=== PATIENT | male | born 1950 | race Caucasian/White ===

== ENCOUNTER 2021-11-07 07:35 | Day surgery (SDC) | payer MEDICARE, BC ==
--- NOTE | 2021-11-07 07:28 | PCM.PREANE ---
Preanesthetic Assessment - Procedure Proposed Procedure: Laparoscopic Cholecystectomy - Anesthesia/Transfusion/Family Hx Anesthesia History: Prior Anesthesia Without Reaction Family History of Anesthesia Reaction: No Transfusion History: No Prior Transfusion(s) Intubation History: Unknown - Review of Systems Pulmonary: No Symptoms (Covid: 08/28/2021 + with primary symptom being fatigue. ETOH: occasionally) Cardiovascular: No Symptoms (HTN, Elevated lipids) Gastrointestinal: Diarrhea Neurological: No Symptoms Other: Reports: None (CKD III), Easy Bruising, Diabetes (am blood sugar: 143 @ 0758), Thyroid Problems (Hypothyroid) - Physical Assessment NPO Status Date: 11/06/21 NPO Status Time: 22:00 Vital Signs: HR: 98 Sat: 96% Temp: 97.8 Resp: 16 B/P: 163/75 Height: 1.68 m Weight: 97.522 kg ASA Class: 3 Mental Status: Alert & Oriented x3 Airway Class: Mallampati = 2 Dentition: Reports: Normal Dentition, Caries Thyro-Mental Finger Breadths: 3 Mouth Opening Finger Breadths: 3 ROM/Head Extension: Full Lungs: Clear to Auscultation, Normal Respiratory Effort Cardiovascular: Regular Rate, Regular Rhythm, No Murmurs - Lab Values: All labs reviewed and noted and within acceptable ranges to proceed with scheduled procedure. - Imaging/EKG Impressions: EKG: SR rate 76 - Allergies Allergies/Adverse Reactions: Allergies Allergy/AdvReac Type Severity Reaction Status Date / Time No Known Allergies Allergy Verified 11/06/21 18:12 - Anesthesia Plan Pre-Op Medication Ordered: None - Acknowledgements Anesthesia Type Planned: General Anesthesia Pt an Appropriate Candidate for the Planned Anesthesia: Yes Alternatives and Risks of Anesthesia Discussed w Pt/Guardian: Yes Pt/Guardian Understands and Agrees with Anesthesia Plan: Yes PreAnesthesia Questionnaire HEENT History: Reports: Impaired Vision Cardiovascular History: Reports: High Cholesterol, Hypertension, Other (See Below) Other Cardiovascular History: EDEMA Respiratory History: Reports: None Gastrointestinal History: Reports: None Genitourinary History: Reports: Chronic Renal Insuffiency, Renal Calculus, Other (See Below) 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 Musculoskeletal History: Reports: None Neurological History: Reports: None Psychiatric History: Reports: None Endocrine/Metabolic History: Reports: Diabetes, Type II, Hypothyroidism Hematologic History: Reports: None Immunologic History: Reports: None Oncologic (Cancer) History: Reports: None Dermatologic History: Reports: Other (See Below) Other Dermatologic History: LEG CYST - Infectious Disease History Infectious Disease History: Reports: Novel Coronavirus - Past Surgical History Head Surgeries/Procedures: Reports: None HEENT Surgical History: Reports: Cataract Surgery, Tonsillectomy Cardiovascular Surgical History: Reports: None Respiratory Surgical History: Reports: None GI Surgical History: Reports: None Female Surgical History: Reports: None Male Surgical History: Reports: None Endocrine Surgical History: Reports: None Neurological Surgical History: Reports: None Musculoskeletal Surgical History: Reports: None Oncologic Surgical History: Reports: None Dermatological Surgical History: Reports: None - SUBSTANCE USE Tobacco Use Status *Q: Never Tobacco User Recreational Drug Use History: No - HOME MEDS Home Medications: Home Meds Aspirin 81 mg PO DAILY 11/06/21 [History] Chlorthalidone 25 mg PO MOWEFR 11/06/21 [History] Insulin Glargine,Hum.Rec.Anlog [Toughulamo Solostar] 58 units SQ QAM 11/06/21 [History] Levothyroxine Sodium [Levothyroxine] 25 mcg PO DAILY 11/06/21 [History] Sodium Bicarbonate 650 mg PO BID 11/06/21 [History] amLODIPine [Norvasc] 5 mg PO DAILY 11/06/21 [History] atorvaSTATin [Lipitor] 10 mg PO BEDTIME 11/06/21 [History] lisinopriL [Lisinopril] 10 mg PO DAILY 11/06/21 [History] - CURRENT (IN HOUSE) MEDS Current Meds: Current Medications Lactated Ringer's (Ringers, Lactated) 1,000 mls @ 125 mls/hr IV ASDIRECTED ASHLEY Stop: 11/07/21 23:00 Lidocaine/Sodium Bicarbonate (Lidocaine 1%/Sod Bicarbonate In Ns 8.4% 1 Ml Syringe) 0.25 ml IDERM ONETIME PRN PRN Reason: Prior to IV Start Stop: 11/07/21 18:00 Sodium Chloride (Sodium Chloride 0.9% 10 Ml Syringe) 10 ml FLUSH ASDIRECTED PRN PRN Reason: Keep Vein Open Stop: 11/07/21 18:00
[~2021-11-07 07:35] MED LIST: Bupivacaine 0.5% 30 ML SDV ONE; Lactated Ringers 1,000 ML IV SCH; Lidocaine 1%/Sod Bicarbonate in NS 8.4% 1 ML Syringe IDERM PRN; Sodium Chloride 0.9% 10 ML Syringe FLUSH PRN
[2021-11-07] MEDS ORDERED: fentaNYL 100 MCG/2 ML SDV ONE ×2 (07:48→09:35)
[2021-11-07] MEDS ORDERED: Midazolam 1 MG/ML 2 ML SDV ONE (07:48)
[2021-11-07] MEDS ORDERED: Propofol 200 MG/20 ML SDV ONE ×2 (07:48)
[2021-11-07] MEDS ORDERED: Rocuronium 50 MG/5 ML Vial ONE (07:53)
[2021-11-07] MEDS ORDERED: ceFAZolin 1 GM Vial ONE (07:53)
[2021-11-07] MEDS ORDERED: Ondansetron 4 MG/2 ML SDV ONE (09:25)
[2021-11-07] MEDS ORDERED: Dexamethasone 4 MG/ML 5 ML MDV ONE (09:25)
[2021-11-07] MEDS ORDERED: Sodium Chloride 0.9% 1,000 ML ONE (09:30)
[2021-11-07] MEDS ORDERED: ePHEDrine 50 MG/ML SDV ONE (09:33)
[2021-11-07] MEDS ORDERED: Dexmedetomidine 200 MCG/2 ML SDV ONE (09:41)
[2021-11-07] MEDS ORDERED: Sodium Chloride 0.9% 100 ML ONE (09:41)
[2021-11-07] MEDS ORDERED: HYDROmorphone 0.5 MG/0.5 ML Syringe ONE ×2 (09:51→10:44)
[2021-11-07] MEDS ORDERED: Labetalol 100 MG/20 ML MDV ONE (11:27)
--- NOTE | 2021-11-07 11:29 | PCM.PRNOTE ---
- Free Text/Narrative Note: Date: 11/07/2021 Operation: laparoscopic cholecystectomy Indication: chronic cholecystitis Surgeon: Girish Meza MD Antibiotic: 2 g ancef IV pre-incision EBL: 50 cc Specimen: gallbladder DVT ppx: SCD Findings: Severe chronic cholecystitis with gallbladder sludge. Bile was spilled as the specimen was being taken off the liver. Critical view of safety obtained. Detailed Report: The patient was taken to the operating room and placed on the table in supine position. Timeout was performed and general endotracheal anesthesia was initiated. The abdomen was prepped and draped in usual sterile fashion. Veress needle was placed in the left upper quadrant in order to establish pneumoperitoneum. Once pressure reached 15 mmHg, air was aspirated with a needle and syringe just inferior to the umbilicus. A 5 mm bladed trocar was inserted at this site and a 5 mm 30 degree laparoscope was inserted into the ab domen. There is no evident injury from Veress needle placement and the needle was removed under vision with the laparoscope. Additional 5 mm ports were placed at the right upper quadrant, 1 laterally for the assistant terminal manager and 1 more medially for the surgeon's left hand. The patient was positioned in reverse Trendelenburg and rotated towards the surgeon standing on the patient's left side. There was abundant thick omentum obscuring view of the gallbladder. The fundus was visualized and grasped. The gallbladder was retracted cephalad. It was difficult to grab the gallbladder due to inflammation and thickening of the gallbladder wall. A 12 mm bladed trocar was inserted just to the right of the falciform at the subxiphoid region for the surgeon's right hand. Omental adhesions to the body of the gallbladder were peeled off bluntly. An additional 5 mm port was placed at the left upper quadrant for a retractor to hold the omentum out of view. With good visualization, careful dissection ensued. A combination of blunt dissection with the suction manager cosmetics, judicious electrocautery and the [place] grasper was used to clear tissue and expose the cystic duct and cystic artery. A critical view of safety was obtained. Purple hemolock clips were placed on the cystic duct with 2 on the stay side. Green hemoclips were placed on the cystic artery. The structures were transected with laparoscopic jonathon. Hook electrocautery was used to take the gallbladder off of the liver. Wall dissection commenced, thick bilious sludge leak from the gallbladder at the site of the duct clip from the gallbladder. The plane for dissection was difficult to discern due to chronic severe inflammation. Once from the liver, the specimen was placed in an Endo Catch bag and removed through the subxiphoid site. Bile was suctioned, and the dissection field was thoroughly irrigated and suctioned using a liter of sterile saline. There was some minor hemorrhage from the raw surface of the liver that was controlled with targeted electrocautery. A large piece of Surgicel was placed at the gallbladder fossa to aid with hemostasis. The dissection field appeared clean and dry. The 12 mm port was removed and fascia was closed at this site with a 0 Vicryl suture using a laparoscopic suture passer. All lateral 5 mm ports were removed under laparoscopic visualization and hemostasis was satisfactory. Pneumoperitoneum was released and the final port removed. All skin incisions were closed with running subcuticular Vicryl and dressed with Dermabond. A total of 30 cc 0.5% Marcaine was used for local anesthetic throughout the case. The patient tolerated the procedure well.
[2021-11-07] MEDS ORDERED: fentaNYL 100 MCG/2 ML SDV IVPUSH PRN (11:30)
[2021-11-07] MEDS ORDERED: HYDROmorphone 0.5 MG/0.5 ML Syringe IVPUSH PRN (11:30)
[2021-11-07] MEDS ORDERED: Ondansetron 4 MG/2 ML SDV IVPUSH PRN (11:30)
--- NOTE | 2021-11-07 11:32 | PCM.POSTAN ---
POST ANESTHESIA ASSESSMENT - MENTAL STATUS Mental Status: Alert, Oriented - VITAL SIGNS Vital Signs: Last Vital Signs Temp 97.8 F 11/07/21 11:30 Pulse 99 11/07/21 11:30 Resp 14 11/07/21 11:30 BP 203/81 H 11/07/21 11:30 Pulse Ox 97 11/07/21 11:30 Labetalol given in PACU. See Intraop anesthesia record. - RESPIRATORY Respiratory Status: Respiratory Rate WNL, Airway Patent, O2 Saturation Stable - CARDIOVASCULAR CV Status: Pulse Rate WNL, Blood Pressure Stable - GASTROINTESTINAL GI Status: No Symptoms - PAIN Pain Score: 0 - POST OP HYDRATION Hydration Status: Adequate & Stable
[2021-11-07] MEDS ORDERED: oxyCODONE 5 MG Tab PO PRN (13:01)
[2021-11-07] MEDS ORDERED: Albuterol 0.042% 1.25 MG/3 ML Neb Soln NEB ONE (14:07)
[2021-11-07] MEDS ORDERED: Albuterol 0.083% 2.5 MG/3 ML Neb Soln NEB ONE (14:30)
--- NOTE | 2021-11-07 15:32 | PCM48HPAN ---
Post Anesthesia Note - EVALUATION WITHIN 48HRS OF ANESTHETIC Vital Signs in Normal Range: Yes Patient Participated in Evaluation: Yes Respiratory Function Stable: Yes (Patient currently on 2 liters, plan for extended floor recovery) Airway Patent: Yes Cardiovascular Function Stable: Yes Hydration Status Stable: Yes Pain Control Satisfactory: Yes Nausea and Vomiting Control Satisfactory: Yes Mental Status Recovered: Yes Vital Signs: Last Vital Signs Temp 98.1 F 11/07/21 13:00 Pulse 92 11/07/21 14:30 Resp 16 11/07/21 14:30 BP 123/68 11/07/21 14:30 Pulse Ox 87 L 11/07/21 14:30 - COMMENTS/OBSERVATIONS Free Text/Narrative:: Plan for patient to go to extended floor recovery to be weaned off of oxygen. Patient currently on 3 liters and oxygen saturations 97%. Patient's lungs are clear. Visited with patient and and agreed with plan. See nursing notes from Vin [facility].
== END 2021-11-07 19:10 | disposition home or self-care (01) ==
LOC: JD.SDS 07:35
PROVIDERS: ATTEND Surgery
DX: K80.10 Calculus of gallbladder with chronic cholecystitis without obstruction (principal); E78.00 Pure hypercholesterolemia, unspecified; E03.9 Hypothyroidism, unspecified; I12.9 Hypertensive chronic kidney disease with stage 1 through stage 4 chronic kidney disease, or unspecified chronic kidney disease; E11.22 Type 2 diabetes mellitus with diabetic chronic kidney disease; N18.30 Chronic kidney disease, stage 3 unspecified; Z79.899 Other long term (current) drug therapy; Z79.82 Long term (current) use of aspirin; Z79.890 Hormone replacement therapy
CPT/HCPCS: 47562; 82947; 88304; J0690; J1100; J1170; J2250; J2405; J2704; J2710; J3010; J3490; J7030; J7120; 00790; 99100